=== PATIENT | male | born 1990 | race Caucasian/White ===

== ENCOUNTER 2017-08-31 17:41 | Emergency (ER) | payer OTHER ==
[~2017-08-31] VITALS: Ht 182.9 cm; Wt 92.5 kg
[2017-08-31 18:04] VITALS: BP 140/76; Ht 182.9 cm; Wt 92.5 kg
== END 2017-08-31 19:33 | disposition home or self-care (01) ==
LOC: ED 17:41
DX: B34.9 Viral infection, unspecified (principal)

== ENCOUNTER 2017-10-14 18:14 | Emergency (ER) | payer OTHER ==
[~2017-10-14] VITALS: Ht 182.9 cm; Wt 97.1 kg
[2017-10-14 18:39] VITALS: Ht 182.9 cm; Wt 97.1 kg
[2017-10-14 19:31] VITALS: BP 129/78
== END 2017-10-14 19:50 | disposition home or self-care (01) ==
LOC: ED 18:14
DX: M54.9 Dorsalgia, unspecified (principal)